=== PATIENT | female | born 1935 | race Caucasian/White ===

== ENCOUNTER → 2019-05-20 | Outpatient (CLI) | payer OTHER ==
[~2019-05-20] MED LIST: ACETAMINOPHEN325 M1 PO; ALPRAZOLAM 0.0.25 M1 PO; CALCITRIOL0.5 MCG PO; CALCIUM 500 WI1 EAC3 PO; CENTRUM SILVER1 EAC1 PO; COUMADIN 2 MG TA2 M1 PO; CRESTOR5 MG PO; GLUCOPHAGE1000 MG PO; LASIX 20 MG TAB20 MG PO; LEVOXYL PO; LEXAPRO 10 MG T10 MG PO; LISINOPRIL5 MG PO; NAMENDA 10 MG T10 MG PO; NAPROXEN SODIU220 M2 PO; PROLOPRIM100 MG PO; SEROQUEL 25 MG25 MG PO; SPIRONOLACTONE50 MG PO; SYNTHROID125 MC1 PO; TYLENOL325 M1 PO; VITAMIN D1000 UNI1 PO
[2019-05-20 14:06] VITALS: BP 117/69
--- NOTE | 2019-05-20 14:37 | NUR ---
[facility] Assessment: 1. History of Osteoarthritis: Left Lower Extremity Right Lower Extremity History of Rheumatoid Arthritis: 2. Height: ft. in. cm. Weight: lb. oz. kg. Patient's BMI: 3. Vital Signs: BP: 117/69 Pulse: 80 Resp: 20 Temp: 02 Sat: 95 ECG Mon: 4. Pain Intensity: 5. Fall Risk: Dizziness: N Needs help standing or walking: Y Fallen in the last 3 months: N Fall risk comments: 6. Patient on Blood Thinner: None 7. History of Hypertension: Y 8. Opioid Therapy greater than 6 weeks: Opiate Contract Signed: 9. Risk Assessment Tool Provided: 10. Functional Assessment Tool: 11. Recreational Drug Use: Never Drug Type: Tobacco Use: Never Smoker Tobacco Type: Amount or Packs/day: How Many Years: Alcohol Use: No Frequency: Quant:
== END | disposition home or self-care (01) ==
LOC: PAIN 07:02
DX: M54.16 Radiculopathy, lumbar region (principal); F03.90 Unspecified dementia, unspecified severity, without behavioral disturbance, psychotic disturbance, mood disturbance, and anxiety; E11.9 Type 2 diabetes mellitus without complications; I10 Essential (primary) hypertension; Z98.890 Other specified postprocedural states; Z79.899 Other long term (current) drug therapy; Z85.820 Personal history of malignant melanoma of skin; Z90.49 Acquired absence of other specified parts of digestive tract; Z90.710 Acquired absence of both cervix and uterus; Z85.42 Personal history of malignant neoplasm of other parts of uterus; Z86.711 Personal history of pulmonary embolism; Z79.01 Long term (current) use of anticoagulants; Z88.0 Allergy status to penicillin; Z91.041 Radiographic dye allergy status; Z88.8 Allergy status to other drugs, medicaments and biological substances